=== PATIENT | male | born 1970 | race Two or more races ===

== ENCOUNTER 2023-08-03 20:37 | Emergency (ER) | payer MEDICAID, OTHER ==
[~2023-08-03] VITALS: Ht 167.6 cm; Wt 70.4 kg
[2023-08-03 20:37] VITALS: BP 156/68; PULSE 111; RESP 20; O2SAT 98
== END 2023-08-03 23:25 | disposition home or self-care (01) ==
LOC: ER 20:37
DX: M79.604 Pain in right leg (principal); M25.571 Pain in right ankle and joints of right foot; F17.210 Nicotine dependence, cigarettes, uncomplicated; W23.0XXA Caught, crushed, jammed, or pinched between moving objects, initial encounter; Y93.89 Activity, other specified; Y92.89 Other specified places as the place of occurrence of the external cause; Y99.8 Other external cause status
CPT/HCPCS: 73030; 73590